=== PATIENT | male | born 1930 ===

== ENCOUNTER 2019-12-02 10:25 | Emergency (ER) | payer MEDICARE, MEDICAID ==
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
[~2019-12-02 10:25] MED LIST: Lactated Ringers 1,000 ML IV ONE; Sodium Chloride 0.9% 10 ML Syringe FLUSH PRN
[2019-12-02 10:33] LABS: ANION GAP 17.5 mEq/L (7-13); CHLORIDE,CL 100 mmol/L (98-107); SODIUM,NA 139 mmol/L (136-145)
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
--- NOTE | 2019-12-02 10:43 | CT ---
PROCEDURE INFORMATION: Exam: CT Head Without Contrast Exam date and time: 12/02/2019 10:22 AM Age: 89 years old Clinical indication: Trauma TECHNIQUE: Imaging protocol: Computed tomography of the head without contrast. Radiation optimization: All CT scans at this facility use at least one of these dose optimization techniques: automated exposure control; mA and/or kV adjustment per patient size (includes targeted exams where dose is matched to clinical indication); or iterative reconstruction. COMPARISON: No relevant prior studies available. FINDINGS: Brain: No acute brain parenchymal abnormality. No intracranial hemorrhage. No extraaxial fluid collections. There is diffuse cerebral atrophy. There are white matter low attenuation changes in both cerebral hemispheres likely related to chronic small vessel disease. Ventricles: No hydrocephalus when allowing for the atrophy. Bones/joints: No calvarial fracture. Sinuses: There is multifocal mucoperiosteal thickening compatible with chronic sinusitis. There is opacification of the left maxillary antrum favored to be chronic as well. Mastoid air cells: The mastoid air cells are aerated. Vasculature: There is atherosclerotic plaque in the cavernous and supraclinoid segments of both internal carotid arteries as well as the vertebrobasilar system. Soft tissues: No acute soft tissue abnormality. IMPRESSION: No intracranial injury or calvarial fracture.
--- NOTE | 2019-12-02 10:54 | CT ---
PROCEDURE INFORMATION: Exam: CT Pelvis Without Contrast; Skeletal Exam date and time: 12/02/2019 10:22 AM Age: 89 years old Clinical indication: Other: Trauma TECHNIQUE: Imaging protocol: Computed tomography images of the pelvis without contrast. Exam focused on the skeletal structures. Radiation optimization: All CT scans at this facility use at least one of these dose optimization techniques: automated exposure control; mA and/or kV adjustment per patient size (includes targeted exams where dose is matched to clinical indication); or iterative reconstruction. COMPARISON: No relevant prior studies available. FINDINGS: Bladder: Distended urinary bladder. Reproductive: The prostate gland demonstrates nonspecific parenchymal calcifications. Bones/joints: Mild degenerative changes at the hips. Deformity of the coccyx consistent with fracture of uncertain age. Soft tissues: Right inguinal hernia containing fat. Other findings: No dislocation. IMPRESSION: Deformity of the coccyx consistent with fracture of uncertain age.
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
[2019-12-02] MEDS ORDERED: Lactated Ringers 1,000 ML IV ONE (12:10)
[2019-12-02] MEDS ORDERED: Norepinephrine 4 MG in Dextrose 5% in Water 246 ML IV SCH ×2 (13:15)
[2019-12-02] MEDS ORDERED: Piperacillin/Tazobactam 3.375 GM in Sodium Chloride 0.9% 100 ML IV ONE (13:24)
[2019-12-02] MEDS ORDERED: Sodium Chloride 0.9% 1,000 ML IV ONE (13:25)
== END 2019-12-02 14:14 ==
LOC: DL.ED 10:25
DX: T68.XXXA Hypothermia, initial encounter (principal); A41.9 Sepsis, unspecified organism; R65.21 Severe sepsis with septic shock; F03.90 Unspecified dementia, unspecified severity, without behavioral disturbance, psychotic disturbance, mood disturbance, and anxiety
CPT/HCPCS: 36415; 70450; 71045; 72125; 72192; 80053; 81001; 83605; 83880; 85025; 87040; 93005; 96365; 96368; 99284; 99285; J2543; J7030; J7050; J7060; J7120